=== PATIENT | female | born 1945 | race Caucasian/White ===

== ENCOUNTER 2017-03-01 16:12 | Observation (INO) | payer MEDICARE, BC ==
[2017-03-01 16:42] LABS: #Basophils 0.1 thou/uL (0.0-0.2); #Monocytes 0.4 thou/uL (0.11-0.59); #Neutrophils 4.5 thou/uL (1.40-6.50); %Basophils 1.2 % (0.0-1.0); %Eosinophils 0.6 % (0.0-10.0); %Lymphocytes 16.2 % (21.0-51.0); %Monocytes 6.1 % (0.0-10.0); %Neutrophils 75.8 % (42.0-75.0); Hemoglobin 11.8 g/dL (12.0-16.0); Mean Corpuscular HGB CONC 31.7 g/dL (32.0-36.0); Mean Corpuscular Hemoglobin 30.3 pg (27.0-31.0); Mean Corpuscular Volume 95.7 fl (81.0-99.0); Mean Platelet Volume 6.1 fL (7.4-10.4); Platelet Count 277 thou/uL (130-400); RBC Distribution Width 11.7 % (11.5-14.5); Red Blood Cell (RBC) Count 3.91 mill/uL (4.20-5.40); White Blood Cell (WBC) Count 5.9 thou/uL (4.8-10.8)
[2017-03-01] MEDS ORDERED: Nitroglycerin 2% Ointment 1 INCH/1 GM Packet ONE (16:52)
[2017-03-01] MEDS ORDERED: Nitroglycerin 0.4 MG TAB (25 Tab Bottle) ONE (16:52)
[2017-03-01 16:53] LABS: ALT (SGPT) 41 U/L (8-55); AST (SGOT) 66 U/L (5-34); Albumin 3.8 g/dL (3.4-4.8); Alkaline Phosphatase 98 U/L (40-150); Anion Gap 14 mmol/L (10-20); BUN (Urea Nitrogen) 18 mg/dL (9.8-20.1); Bilirubin, Total 0.2 mg/dL (0.2-1.2); CK (CPK) 129 U/L (29-168); Calc. Creatinine Clearance 0 mL/min (70-130); Calcium 8.9 mg/dL (7.8-10.44); Carbon Dioxide 23 mmol/L (23-31); Chloride 106 mmol/L (98-107); Estimated GFR-MDRD 70; Globulin 2.8 g/dL (2.4-3.5); Glucose 137 mg/dL (83-110); Potassium 3.6 mmol/L (3.5-5.1); Protein, Total 6.6 g/dL (6.0-8.3); Sodium 139 mmol/L (136-145)
[2017-03-01 16:57] LABS: CKMB 3.1 ng/mL (0-6.6); Troponin I 0.014 ng/mL (< 0.028)
--- NOTE | 2017-03-01 16:57 | RAD ---
CHEST ONE VIEW: History: Chest pain. Comparison: None. FINDINGS: Portable upright chest. Normal cardiac silhouette. The pulmonary vessels and hilum are normal. No mas s. No consolidation. No pneumothorax or osseous abnormality. IMPRESSION: No acute cardiopulmonary process. POS: [facility]
[2017-03-01] MEDS ORDERED: HYDROcodone/Acetaminophen 5/325 mg Tablet PO PRN ×2 (19:56)
[2017-03-01] MEDS ORDERED: Ondansetron HCl/PF 4 MG/2 ML Vial IVP PRN (19:56)
[2017-03-01] MEDS ORDERED: Ondansetron ODT 4 MG TAB SL PRN (19:56)
[2017-03-01] MEDS: Acetaminophen 325 MG TAB PO PRN (20:42)
[2017-03-01 22:15] VITALS: BMI 23.1
[2017-03-01] MEDS ORDERED: clonazePAM 1 MG TAB PO PRN (22:42)
[2017-03-01] MEDS ORDERED: CeleCOXIB 100 MG CAP PO PRN (22:42)
[2017-03-01] MEDS ORDERED: Enoxaparin Sodium 30 MG/0.3 ML SYRINGE SC SCH (22:45)
[2017-03-01] MEDS ORDERED: Metoprolol Tartrate 25 MG TAB PO SCH (23:00)
[2017-03-01] MEDS ORDERED: Losartan 25 MG TAB PO SCH (23:15)
[2017-03-01 23:39] LABS: CKMB 2.1 ng/mL (0-6.6); Troponin I 0.011 ng/mL (< 0.028)
[2017-03-02] MEDS: Nitroglycerin 2% Ointment 1 INCH/1 GM Packet TOP SCH ×2 (03:53→15:10)
[2017-03-02 04:35] VITALS: TEMP 99.8
[2017-03-02] MEDS: Acetaminophen 325 MG TAB PO PRN (04:46)
[2017-03-02 05:20] LABS: #Lymphocytes 0.8 thou/uL (1.20-3.40); #Monocytes 0.2 thou/uL (0.11-0.59); #Neutrophils 1.2 thou/uL (1.40-6.50); %Basophils 1.2 % (0.0-1.0); %Eosinophils 1.2 % (0.0-10.0); %Lymphocytes 34.8 % (21.0-51.0); %Monocytes 7.1 % (0.0-10.0); %Neutrophils 55.8 % (42.0-75.0); Hemoglobin 11.5 g/dL (12.0-16.0); Mean Corpuscular HGB CONC 32.1 g/dL (32.0-36.0); Mean Corpuscular Hemoglobin 31.8 pg (27.0-31.0); Mean Corpuscular Volume 99.2 fl (81.0-99.0); Mean Platelet Volume 7.6 fL (7.4-10.4); Platelet Count 246 thou/uL (130-400); RBC Distribution Width 11.9 % (11.5-14.5); Red Blood Cell (RBC) Count 3.61 mill/uL (4.20-5.40); White Blood Cell (WBC) Count 2.2 thou/uL (4.8-10.8)
[2017-03-02 05:30] LABS: Anion Gap 12 mmol/L (10-20); BUN (Urea Nitrogen) 14 mg/dL (9.8-20.1); Calc. Creatinine Clearance 63 mL/min (70-130); Calcium 8.4 mg/dL (7.8-10.44); Carbon Dioxide 23 mmol/L (23-31); Cardiac Risk 2.9 (Less than 4.5); Chloride 106 mmol/L (98-107); Cholesterol 162 mg/dl (< 200 Desired); Estimated GFR-MDRD 75; Glucose 79 mg/dL (83-110); HDL Cholesterol 56 mg/dL (>60 Neg Risk); LDL Cholesterol, Calculated 96 mg/dL; Magnesium 1.8 mg/dL (1.6-2.6); Potassium 3.5 mmol/L (3.5-5.1); Sodium 137 mmol/L (136-145); Triglycerides 51 mg/dL (Less than 150)
[2017-03-02] MEDS ORDERED: Levothyroxine Sodium 25 MCG TAB PO SCH (06:00)
--- NOTE | 2017-03-02 06:11 | HP ---
PRIMARY CARE PHYSICIAN: Dr. Yo Ochoa. TIME OF SERVICE: 10:10. CHIEF COMPLAINT: Chest pain. HISTORY OF PRESENT ILLNESS: Ms. Jensen is a pleasant 72-year-old white female with history of hypert ension, hypothyroidism who presents to outside Emergency Department with complaints of chest pain. Patient states she was sitting on a couch, actually and ironically studying for a recertification of CPR. 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 It did not radiate into any of her arms or legs. She had a little bit of nausea, but no shortness of b reath or diaphoresis. She had no indigestion associated with it, and had no known exacerbating or alleviating factors. She did get up and take a shower and noticed it really had not gone away, so [facility]. En route to the ER, the pain did stop but then recurred worse in the first time at 10/10. She was gi hunter nitroglycerin sublingual and helped to ease it out. She has had no pain since. No other current complaints. Denies any fever or chills, no cough, no sputum production, hemoptysis. No GI bleeding. PAST MEDICAL HISTORY: 1. Hypertension. 2. Hypothyroidism. 3. Chart with diabetes; she denies having. HOME MEDICATIONS: 1. Losartan 100 mg p.o. at bedtime. 2. Levothyroxine 25 mcg p.o. at bedtime every day. 3. Trazodone 100 mg p.o. at bedtime. She has been on that for 40 years . 4. Celebrex 200 mg 1-2 times daily p.r.n. pain. 5. Centrum Silver daily. 5. Calcium citrate 500 mg p.o. q.a.m. 6. Klonopin 1 mg tablets one-half to one whole tablet p.o. at bedtime p.r.n. insomnia. PAST SURGICAL HISTORY: 1. Gastric sleeve procedure about 12 years ago. 2. Laparoscopic cholecystectomy 7-8 years ago. 3. TAHBSO 26 years ago. 4. Left knee anterior cruciate ligament repair 40 years ago. She did have a stress test prior to her gastric sleeve that was negative. ALLERGIES: LEVOFLOXACIN causes abdominal pain. MACRODANTIN causes chills. LISINOPRIL causes cough and Tylenol #3 causes abdominal pain. FAMILY HISTORY: Significant for mom with COPD and diabetes. Dad at age 54 of acute heart attac k. SOCIAL HISTORY: Negative for habits x3. 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 REVIEW OF SYSTEMS: A 10-point review of systems was performed, negative for all systems except as st ated as per HPI. PHYSICAL EXAMINATION: VITAL SIGNS: Temperature 99.3, pulse 97, blood pressure 129/70, respiratory rate 20, satting 96% on room air. GENERAL: She is awake. She is alert. She is oriented. She is a well-developed, well-nourished, wh ite female who appears to be in no acute distress. She appears younger than her stated age of 72. HEENT: Normocephalic and atraumatic. Her pupils are equal, round, reactive to light bilaterally. M ucous membranes are moist. She has no visible lesions. No thrush. NECK: Supple with no lymphadenopathy, JVD or thyromegaly. She has normal carotid upstroke. There a re no bruits. RESPIRATORY: Lungs are clear to auscultation bilaterally. She has good air movement. Symmetrical c hest excursion. There are no wheezes, no rales, no rhonchi, and no prolonged expiratory phase. CARDIOVASCULAR: Normal S1, S2. No S3, S4. She has a faint 2/6 systolic ejection murmur in the righ t upper sternal border. There is no radiation. She has no diastolic murmurs. No holosystolic murmu r. ABDOMEN: Soft, it is nontender, nondistended. She has no masses, no organomegaly. She has no rebou nd, rigidity or guarding. There is normoactive bowel sounds present in all 4 quadrants. EXTREMITIES: Show no cyanosis or clubbing. She got trace edema at the bilateral feet and ankles. S he has an old arthrotomy scar in the anterior aspect of her left knee that is well healed. SKIN: Warm and well perfused without any rashes or lesions. MUSCULOSKELETAL: Normal to inspection. She has no inflamed joints. No palpable joint effusions. NEUROLOGIC: Cranial nerves II-XII are grossly intact. She has normal speech pattern, 5/5 strength i n all 4 of her extremities. No focal deficits. LABORATORY DATA: Sodium 139, potassium 3.6, chloride 106, bicarb 23, BUN 18, creatinine 0.8, glucose 137, and calcium 8.9. Liver functions are normal except for an AST is slightly elevated at 66. CBC showed white count of 5.9, hemoglobin 11.8, hematocrit 37.4, platelet count is 277,000. Cardiac biomarkers with a CK of 129, CK-MB of 3.1 and troponin I negative at 0.014. Her chest x-ray done earlier today showed no acute cardiopulmonary disease. ASSESSMENT AND PLAN: 1. Chest pain, we will rule out acute cardiac syndrome. We will get serial cardiac biomarkers. We will place her on oxygen, nitroglycerin paste, beta denilson, and aspirin. We will get serial cardiac biomarkers. If it is negative, we will proceed with nuclear stress test in the morning. I think it is likely being a cardiac induced that she does aerobics three times a week without any difficulty a nd likely if this was an acute cardiac event, it would be a large arterial blockage. 2. Hypertension: Continue her losartan. 3. Hypothyroidism, on levothyroxine, which she will continue.
[2017-03-02 07:41] LABS: CKMB 1.7 ng/mL (0-6.6); Troponin I 0.011 ng/mL (< 0.028)
[2017-03-02 08:11] VITALS: BP 103/53
[2017-03-02] MEDS ORDERED: Metoprolol Tartrate 25 MG TAB PO SCH (09:00)
[2017-03-02] MEDS ORDERED: Famotidine 20 MG TAB PO SCH (09:00)
[2017-03-02] MEDS ORDERED: Aspirin 325 MG TAB PO SCH (09:00)
[2017-03-02] MEDS ORDERED: Enoxaparin Sodium 30 MG/0.3 ML SYRINGE SC SCH (09:00)
--- NOTE | 2017-03-02 13:25 | NM ---
NUCLEAR MEDICINE CARDIAC MYOCARDIAL PERFUSION SPECT EJECTION FRACTION STUDY WALL MOTION CINE: HISTORY: 72-year-old female with chest pain. TECHNIQUE: Number of days: 1 Rest study: Tc99m sestamibi (Cardiolite) dose: 10.2 mCi Exercise stress: treadmill. Stress study: Tc99m sestamibi (Cardiolite) dose: 29.0 mCi FINDINGS: CARDIAC (MYOCARDIAL PERFUSION) SPECT Distribution of sestamibi is homogeneous throughout the left ventricle, with no fixed or reversible m yocardial perfusion defects. EJECTION FRACTION STUDY EF = 80% WALL MOTION CINE The left ventricular wall motion is normal. There is normal systolic wall thickening. IMPRESSION: Normal. [email or web address][] POS: [facility]
[2017-03-02] MEDS ORDERED: Losartan 25 MG TAB PO SCH (21:00)
--- NOTE | 2017-03-03 11:51 | DIS ---
DATE OF DISCHARGE: 03/02/2017 PRIMARY CARE PHYSICIAN: Yo Ochoa M.D. DISCHARGE DIAGNOSES: 1. Chest pain, non-acute coronary syndrome, resolved. 2. Hypertension. 3. Hypothyroidism. BRIEF SUMMARY OF HOSPITAL COURSE: A 72-year-old female with a known history of hypertension, type 2 diabetes, who is initially admitted for chest pain at home. Please see the original history and formerly [facility] ical for full details. The patient was admitted, serial troponins were obtained, most recent value o f 0.011, essentially negative per our assay. The patient underwent a stress test, which was negative as well. At the time of discharge, the patient has been instructed to follow up with her primary ca re team and return if there is any recurrent of her chest pain issues. Remainder of her chronic medical issues were stable during hospitalization. CONSULTATIONS: None. MEDICATION RECONCILIATION: The patient has been instructed to continue her home regimen without harrell ge. DISCHARGE INSTRUCTIONS: The patient is asked to follow up closely with her outpatient team including her primary care provider in the next week. DISCHARGE PLAN: The patient is discharged to home. The patient is able to complete teach-back and n o prescriptions were given. Thank you for asking me care for your patient. Questions or concerns, please contact me at [facility].
== END 2017-03-02 15:46 | disposition home or self-care (01) ==
LOC: SCSER 16:12 → 2SW 17:29
PROVIDERS: ADMIT Internal Medicine; ATTEND Internal Medicine
DX: R07.89 Other chest pain (principal); I10 Essential (primary) hypertension; E03.9 Hypothyroidism, unspecified; E11.9 Type 2 diabetes mellitus without complications; Z79.899 Other long term (current) drug therapy; Z98.84 Bariatric surgery status; Z90.49 Acquired absence of other specified parts of digestive tract; Z90.710 Acquired absence of both cervix and uterus; Z90.722 Acquired absence of ovaries, bilateral; Z98.890 Other specified postprocedural states; Z83.6 Family history of other diseases of the respiratory system; Z83.3 Family history of diabetes mellitus; Z82.49 Family history of ischemic heart disease and other diseases of the circulatory system
CPT/HCPCS: 71045; 78452; 80048; 80053; 80061; 82550; 82553 ×3; 83735; 84484 ×3; 85025 ×2; 93005; 93017; 94760; 96372; 99285; A9500; G0378; 36415; J1650

== ENCOUNTER 2017-07-26 08:51 | Outpatient (CLI) | payer MEDICARE, BC ==
--- NOTE | 2017-07-27 09:46 | MMO ---
BILATERAL SCREENING MAMMOGRAM: INDICATION: Annual exam. COMPARISON: Prior exam dated 07/09/15. FINDINGS: The interpretation of this examination was assisted with computer-aided detection. Breast parenchyma demonstrates scattered fibroglandular elements. There secretory and vascular calcifications bilaterally. No new suspicious mass, cluster of microcalcifications, or area of architectural distortion is eviden t. IMPRESSION: BI-RADS category 2 - benign. Recommend routine annual mammographic screening. BIRADS 2: Benign Finding(s) Routine annual screening mammography (for women over age 40) POS: [facility]
== END 2017-07-26 08:52 | disposition home or self-care (01) ==
LOC: SCSMAMMO 08:51
PROVIDERS: ATTEND Obstetrics & Gynecology
DX: Z12.31 Encounter for screening mammogram for malignant neoplasm of breast (principal)
CPT/HCPCS: 77067

== ENCOUNTER 2020-10-02 07:29 | Outpatient (CLI) | payer MEDICARE, BC ==
[2020-10-02] MEDS ORDERED: Magnevist 469MG/ML 20 ML VIAL ONE (10:09)
== END 2020-10-02 07:30 | disposition home or self-care (01) ==
LOC: BICMRI 07:29
PROVIDERS: ATTEND Physician Assistant Medical
DX: K85.90 Acute pancreatitis without necrosis or infection, unspecified (principal); R74.01 Elevation of levels of liver transaminase levels; K86.89 Other specified diseases of pancreas; K83.8 Other specified diseases of biliary tract; Z90.49 Acquired absence of other specified parts of digestive tract
CPT/HCPCS: 74183; 82565; A9579

== ENCOUNTER 2021-08-08 08:31 | Outpatient (CLI) | payer MEDICARE, BC | END 2021-08-08 08:32 | disposition home or self-care (01) | LOC: TBSIIMAG 08:31 | PROVIDERS: ATTEND Specialist | DX: M51.16 Intervertebral disc disorders with radiculopathy, lumbar region (principal); M48.061 Spinal stenosis, lumbar region without neurogenic claudication; M47.26 Other spondylosis with radiculopathy, lumbar region | CPT/HCPCS: 72148 ==

== ENCOUNTER 2021-09-03 12:13 | Outpatient (CLI) | payer MEDICARE, BC ==
[2021-09-03 13:40] LABS: Hemoglobin 12.2 g/dL (12.0-15.5); Mean Corpuscular HGB CONC 32.5 g/dL (32.0-36.0); Mean Corpuscular Hemoglobin 31.5 pg (27.0-33.0); Mean Corpuscular Volume 96.9 fl (81.6-98.3); Mean Platelet Volume 10.2 fl (7.4-10.4); Platelet Count 368 10x3/uL (150-450); RBC Distribution Width 14.3 % (11.5-14.5); Red Blood Cell (RBC) Count 3.87 10x6/uL (3.90-5.03); White Blood Cell (WBC) Count 6.3 10x3/uL (3.5-10.5)
[2021-09-03 14:07] LABS: Anion Gap 17 mmol/L (10-20); BUN (Urea Nitrogen) 22 mg/dL (9.8-20.1); Calc. Creatinine Clearance 0 mL/min (70-130); Calcium 9.8 mg/dL (7.8-10.44); Carbon Dioxide 22 mmol/L (23-31); Chloride 106 mmol/L (98-107); Estimated GFR 63; Glucose 95 mg/dL (83-110); Potassium 4.5 mmol/L (3.5-5.1); Sodium 140 mmol/L (136-145)
== END 2021-09-03 12:14 | disposition home or self-care (01) ==
LOC: LABBT 12:13
PROVIDERS: ATTEND Neurological Surgery
DX: Z01.818 Encounter for other preprocedural examination (principal); M54.16 Radiculopathy, lumbar region; Z20.822 Contact with and (suspected) exposure to COVID-19
CPT/HCPCS: 80048; 85027; 87811; 93005; 93010

== ENCOUNTER 2021-09-08 06:50 | Day surgery (SDC) | payer MEDICARE, BC ==
[2021-09-05 08:56] VITALS: BMI 24.1
[2021-09-08] MEDS ORDERED: Sodium Chloride 0.9% 100 ML ONE (07:58)
[2021-09-08] MEDS ORDERED: cefOXitin 2 GM VIAL ONE (07:58)
[2021-09-08] MEDS ORDERED: Phenylephrine 10 MG/ML VIAL ONE (09:03)
[2021-09-08] MEDS ORDERED: Rocuronium Bromide 10 MG/ML (10ML VIAL) ONE (09:03)
[2021-09-08] MEDS ORDERED: Dexamethasone 20 MG/5 ML VIAL ONE (09:03)
[2021-09-08] MEDS ORDERED: PROPOFOL 200 MG/20 ML VIAL ONE (09:03)
[2021-09-08] MEDS ORDERED: ePHEDrine 50 MG/ML VIAL ONE (09:03)
[2021-09-08] MEDS ORDERED: Ondansetron PF 4 MG/2 ML Vial ONE (09:03)
[2021-09-08] MEDS ORDERED: Lidocaine 1% PF 5 ML VIAL ONE (09:03)
[2021-09-08] MEDS ORDERED: fentaNYL Citrate/PF 100 MCG/2 ML SYRINGE ONE (09:47)
[2021-09-08] MEDS ORDERED: SUGAMMADEX SODIUM 200 MG/2 ML VIAL ONE (10:26)
[2021-09-08] MEDS ORDERED: Fentanyl 100 MCG/2 ML VIAL ONE ×3 (10:54→11:31)
[2021-09-08] MEDS ORDERED: HYDROmorphone 0.5 MG/0.5 ML SYRINGE ONE ×3 (10:56→11:31)
[2021-09-08] MEDS ORDERED: HYDROcodone/Acetaminophen 5/325 mg Tablet ONE (13:07)
== END 2021-09-08 15:35 | disposition home or self-care (01) ==
LOC: SDC 06:50
PROVIDERS: ATTEND Neurological Surgery
PROC: 0SG0071 Fusion of Lumbar Vertebral Joint with Autologous Tissue Substitute, Posterior Approach, Posterior Column, Open Approach (ICD-10-PCS; principal; 2021-09-08)
DX: M47.26 Other spondylosis with radiculopathy, lumbar region (principal); M48.062 Spinal stenosis, lumbar region with neurogenic claudication; I10 Essential (primary) hypertension; M19.90 Unspecified osteoarthritis, unspecified site; Z98.84 Bariatric surgery status; Z79.890 Hormone replacement therapy; Z79.899 Other long term (current) drug therapy
CPT/HCPCS: 20930; 20936; 22612; 22840; 76000; C1713 ×2; C1768; J0694; J1100; J1170; J2370; J2405; J2704; J3010; J3370; J3490

== ENCOUNTER 2021-09-25 08:39 | Outpatient (CLI) | payer MEDICARE, BC | END 2021-09-25 08:40 | disposition home or self-care (01) | LOC: TBSIIMAG 08:39 | PROVIDERS: ATTEND Neurological Surgery | DX: M47.26 Other spondylosis with radiculopathy, lumbar region (principal); Z98.890 Other specified postprocedural states | CPT/HCPCS: 72100 ==

== ENCOUNTER 2021-11-13 12:42 | Outpatient (CLI) | payer MEDICARE, BC ==
[~2021-11-13 12:42] MED LIST: Magnevist 469MG/ML 20 ML VIAL ONE
== END 2021-11-13 12:43 | disposition home or self-care (01) ==
LOC: MRI 12:42
PROVIDERS: ATTEND Neurological Surgery
DX: M54.50 Low back pain, unspecified (principal); M47.816 Spondylosis without myelopathy or radiculopathy, lumbar region; M47.817 Spondylosis without myelopathy or radiculopathy, lumbosacral region; M47.815 Spondylosis without myelopathy or radiculopathy, thoracolumbar region; R60.0 Localized edema; Z98.890 Other specified postprocedural states
CPT/HCPCS: 72100; 72158; A9579

== ENCOUNTER 2021-11-15 10:35 | Inpatient (IN) | payer MEDICARE, BC ==
[2021-11-15] MEDS ORDERED: Morphine 4 MG/ML VIAL ONE (11:56)
[2021-11-15] MEDS ORDERED: Ketorolac Tromethamine 30 MG/ML VIAL ONE (11:57)
[2021-11-15 12:17] LABS: #Eosinphils 0.1 thou/uL (0.0-0.7); #Lymphocytes 0.8 thou/uL (1.20-3.40); #Monocytes 0.5 thou/uL (0.11-0.59); #Neutrophils 6.8 thou/uL (1.40-6.50); %Basophils 0.1 % (0.0-1.0); %Eosinophils 0.9 % (0.0-10.0); %Lymphocytes 9.3 % (21.0-51.0); %Monocytes 6.1 % (0.0-10.0); %Neutrophils 83.6 % (42.0-75.0); Hemoglobin 7.7 g/dL (12.0-16.0); Mean Corpuscular Volume 93.9 fL (78.0-98.0); Mean Platelet Volume 6.7 fL (7.4-10.4); Platelet Count 458 thou/uL (130-400); RBC Distribution Width 12.6 % (11.5-14.5); Red Blood Cell (RBC) Count 2.48 mill/uL (4.20-5.40); White Blood Cell (WBC) Count 8.1 thou/uL (4.8-10.8)
[2021-11-15 12:24] LABS: ALT (SGPT) 15 U/L (8-55); AST (SGOT) 24 U/L (5-34); Albumin 2.7 g/dL (3.4-4.8); Alkaline Phosphatase 83 U/L (40-110); Anion Gap 13 mmol/L (10-20); BUN (Urea Nitrogen) 26 mg/dL (9.8-20.1); Bilirubin, Total 0.4 mg/dL (0.2-1.2); Calc. Creatinine Clearance 0 mL/min (70-130); Calcium 8.5 mg/dL (7.8-10.44); Carbon Dioxide 18 mmol/L (23-31); Chloride 108 mmol/L (98-107); Estimated GFR 72; Globulin 3.3 g/dL (2.4-3.5); Glucose 107 mg/dL (83-110); Potassium 4.3 mmol/L (3.5-5.1); Sodium 135 mmol/L (136-145)
[2021-11-15] MEDS ORDERED: Ondansetron PF 4 MG/2 ML Vial IVP PRN (14:58)
[2021-11-15] MEDS ORDERED: Sodium Chloride 0.9% 500 ML IV SCH (15:15)
[2021-11-15 17:10] VITALS: BMI 21.5
[2021-11-15] MEDS ORDERED: Piperacillin/Tazobactam 3.375 GM in Sodium Chloride 0.9% 100 ML IVPB SCH ×2 (17:30→22:00)
[2021-11-15] MEDS: Acetaminophen 325 MG TAB PO PRN ×2 (17:47→21:20)
[2021-11-15] MEDS: Sodium Chloride 0.9% 1,000 ML IV SCH (17:54)
[2021-11-15] MEDS: Piperacillin/Tazobactam 3.375 GM in Sodium Chloride 0.9% 100 ML IVPB SCH (18:54)
[2021-11-15] MEDS: Lidocaine 5% Patch TD SCH (21:20)
[2021-11-15] MEDS: Polyethylene Glycol 3350 17 GM Packet PO PRN (21:20)
[2021-11-15] MEDS: Gabapentin 300 MG CAP PO SCH (21:21)
[2021-11-15] MEDS: Senokot S 8.6-50 MG TAB PO SCH (21:21)
[2021-11-15] MEDS ORDERED: Bisacodyl 10 MG SUPP PR PRN (23:00)
[2021-11-15] MEDS ORDERED: Non-Formulary Item 1 EACH (Telmisartan [Telmisartan] 40 MG Tablet) PO SCH (23:00)
[2021-11-15] MEDS ORDERED: clonazePAM 1 MG TAB PO PRN (23:02)
[2021-11-15] MEDS: Vancomycin HCl 750 MG in Sodium Chloride 0.9% 250 ML 250 ML IVPB SCH (23:52)
[2021-11-15] MEDS: Morphine 4 MG/ML VIAL SLOW IVP PRN (23:52)
[2021-11-16 00:55] LABS: Bilirubin Negative (Negative); Blood, Urine Negative (Negative); Clarity Clear (Clear); Glucose, Urine (Dipstick) Normal (Negative); Ketone, Urine Negative (Negative); Leukocyte Negative Leu/uL (Negative); Nitrite Negative (Negative); Protein, Urine (Dipstick) Negative (Neg-Trace); RBC/HPF 0-3 HPF (0-3); Specific Gravity, Urine 1.014 (1.002-1.036); Squamous Epithelial None Seen HPF (0-3); Urobilinogen Normal mg/dL (Less than 2); WBC/HPF 0-3 HPF (0-3)
[2021-11-16 01:02] LABS: Bacteria/HPF Rare-Few HPF (None Seen)
[2021-11-16 01:04] LABS: Urine Culture Reflex No No
[2021-11-16 01:13] LABS: SARS-CoV-2 NAA Rapid Test Not Detected (NotDetected)
[2021-11-16] MEDS: Sodium Chloride 0.9% 1,000 ML IV SCH (01:18)
[2021-11-16] MEDS: Piperacillin/Tazobactam 3.375 GM in Sodium Chloride 0.9% 100 ML IVPB SCH ×3 (02:00→18:36)
[2021-11-16] MEDS: Levothyroxine Sodium 25 MCG TAB PO SCH (06:40)
[2021-11-16] MEDS: Senokot S 8.6-50 MG TAB PO SCH ×2 (08:43→20:09)
[2021-11-16] MEDS: Gabapentin 300 MG CAP PO SCH ×3 (08:43→20:10)
[2021-11-16] MEDS: Acetaminophen 325 MG TAB PO PRN ×3 (08:44→22:10)
[2021-11-16] MEDS ORDERED: Transdermal Patch Removal TOP SCH (09:00)
[2021-11-16] MEDS ORDERED: FLU VACC QS2022-23(65YR UP)/PF 240 MCG/0.7 ML SYRINGE IM ONE (09:00)
[2021-11-16 10:09] LABS: #Eosinphils 0.2 thou/uL (0.0-0.7); #Lymphocytes 0.5 thou/uL (1.20-3.40); #Monocytes 0.4 thou/uL (0.11-0.59); #Neutrophils 6.3 thou/uL (1.40-6.50); %Lymphocytes 6.9 % (21.0-51.0); %Monocytes 5.3 % (0.0-10.0); %Neutrophils 84.8 % (42.0-75.0); Hemoglobin 8.2 g/dL (12.0-16.0); Mean Corpuscular Hemoglobin 30.3 pg (27.0-31.0); Mean Corpuscular Volume 94.7 fL (78.0-98.0); Platelet Count 470 thou/uL (130-400); RBC Distribution Width 12.6 % (11.5-14.5); Red Blood Cell (RBC) Count 2.72 mill/uL (4.20-5.40); White Blood Cell (WBC) Count 7.5 thou/uL (4.8-10.8)
[2021-11-16 10:33] LABS: Anion Gap 13 mmol/L (10-20); BUN (Urea Nitrogen) 23 mg/dL (9.8-20.1); CRP (Inflammatory) 13.76 mg/dL (= or < 0.5); Calc. Creatinine Clearance 42 mL/min (70-130); Calcium 8.8 mg/dL (7.8-10.44); Carbon Dioxide 16 mmol/L (23-31); Chloride 110 mmol/L (98-107); Estimated GFR 63; Glucose 199 mg/dL (83-110); Potassium 4.4 mmol/L (3.5-5.1); Sodium 135 mmol/L (136-145)
[2021-11-16] MEDS: Morphine 4 MG/ML VIAL SLOW IVP PRN (10:56)
[2021-11-16] MEDS ORDERED: tiZANidine HCl 4 MG TAB PO PRN (11:45)
[2021-11-16] MEDS ORDERED: diphenhydrAMINE 50 MG/ML VIAL IM PRN (12:23)
[2021-11-16] MEDS ORDERED: FENTANYL 500 MCG/10 ML VIAL 2,000 MCG in Sodium Chloride 0.9% 60 ML IV PRN (12:23)
[2021-11-16] MEDS ORDERED: Ondansetron PF 4 MG/2 ML Vial IVP PRN (12:23)
[2021-11-16] MEDS ORDERED: diphenhydrAMINE 25 MG CAP PO PRN (12:23)
[2021-11-16] MEDS ORDERED: Naloxone HCl 0.4 mg/ml Vial IV PRN (12:23)
[2021-11-16] MEDS ORDERED: diphenhydrAMINE 50 MG/ML VIAL IVP PRN (12:23)
[2021-11-16] MEDS ORDERED: Promethazine HCl 25 MG/ML VIAL IM PRN (12:23)
[2021-11-16] MEDS ORDERED: Zolpidem Tartrate 5 MG TAB PO PRN (12:23)
[2021-11-16] MEDS ORDERED: Communication Order-Pharmacy FS SCH (12:30)
[2021-11-16 13:22] LABS: Free T4 (Free Thyroxine) 1.02 ng/dL (0.70-1.48)
[2021-11-16] MEDS ORDERED: Calcium Carbonate 500 MG ChewTAB PO PRN (18:42)
[2021-11-16] MEDS: Lidocaine 5% Patch TD SCH (20:10)
[2021-11-16] MEDS: Polyethylene Glycol 3350 17 GM Packet PO PRN (20:10)
[2021-11-16 23:24] LABS: Vancomycin, Trough 8.9 ug/mL
[2021-11-17] MEDS: Vancomycin HCl 750 MG in Sodium Chloride 0.9% 250 ML 250 ML IVPB SCH ×3 (00:20→13:35)
[2021-11-17] MEDS: Piperacillin/Tazobactam 3.375 GM in Sodium Chloride 0.9% 100 ML IVPB SCH ×3 (02:10→18:14)
[2021-11-17] MEDS: Levothyroxine Sodium 25 MCG TAB PO SCH (06:30)
[2021-11-17] MEDS: Gabapentin 300 MG CAP PO SCH ×5 (08:14→20:28)
[2021-11-17] MEDS: Senokot S 8.6-50 MG TAB PO SCH ×2 (08:14→20:28)
[2021-11-17 09:08] LABS: #Eosinphils 0.3 thou/uL (0.0-0.7); #Lymphocytes 1.1 thou/uL (1.20-3.40); #Monocytes 0.8 thou/uL (0.11-0.59); #Neutrophils 5.4 thou/uL (1.40-6.50); %Basophils 0.2 % (0.0-1.0); %Eosinophils 3.4 % (0.0-10.0); %Lymphocytes 13.9 % (21.0-51.0); %Neutrophils 71.5 % (42.0-75.0); Mean Corpuscular Hemoglobin 31.3 pg (27.0-31.0); Mean Corpuscular Volume 97.9 fL (78.0-98.0); Mean Platelet Volume 6.7 fL (7.4-10.4); Platelet Count 432 thou/uL (130-400); RBC Distribution Width 12.7 % (11.5-14.5); Red Blood Cell (RBC) Count 2.23 mill/uL (4.20-5.40); White Blood Cell (WBC) Count 7.6 thou/uL (4.8-10.8)
[2021-11-17] MEDS: Lidocaine 5% Patch TD SCH (10:00)
[2021-11-17] MEDS: Acetaminophen 325 MG TAB PO PRN ×3 (10:00→20:36)
[2021-11-17] MEDS: tiZANidine HCl 4 MG TAB PO SCH ×3 (10:00→20:28)
[2021-11-17] MEDS ORDERED: FENTANYL 500 MCG/10 ML VIAL 2,000 MCG in Sodium Chloride 0.9% 60 ML IV PRN (10:12)
[2021-11-17 12:35] LABS: Calcium 8.2 mg/dL (7.8-10.44); Chloride 109 mmol/L (98-107); Potassium 3.9 mmol/L (3.5-5.1); Sodium 134 mmol/L (136-145)
[2021-11-17 12:36] LABS: Glucose 142 mg/dL (83-110)
[2021-11-17 12:37] LABS: Anion Gap 13 mmol/L (10-20); Carbon Dioxide 16 mmol/L (23-31)
[2021-11-17 12:39] LABS: CRP (Inflammatory) 8.32 mg/dL (= or < 0.5); Calc. Creatinine Clearance 50 mL/min (70-130); Estimated GFR 77
[2021-11-17 12:40] LABS: BUN (Urea Nitrogen) 19 mg/dL (9.8-20.1)
[2021-11-17] MEDS: Transdermal Patch Removal TOP SCH (20:29)
[2021-11-18] MEDS: Vancomycin HCl 750 MG in Sodium Chloride 0.9% 250 ML 250 ML IVPB SCH ×2 (00:02→15:59)
[2021-11-18] MEDS: Acetaminophen 325 MG TAB PO PRN ×3 (01:47→15:59)
[2021-11-18] MEDS: Piperacillin/Tazobactam 3.375 GM in Sodium Chloride 0.9% 100 ML IVPB SCH ×3 (01:48→21:11)
[2021-11-18 05:56] LABS: #Eosinphils 0.3 thou/uL (0.0-0.7); #Monocytes 0.6 thou/uL (0.11-0.59); #Neutrophils 4.7 thou/uL (1.40-6.50); %Basophils 0.4 % (0.0-1.0); %Eosinophils 4.3 % (0.0-10.0); %Lymphocytes 15.7 % (21.0-51.0); %Monocytes 9.2 % (0.0-10.0); %Neutrophils 70.5 % (42.0-75.0); Hemoglobin 7.4 g/dL (12.0-16.0); Mean Corpuscular HGB CONC 31.8 g/dL (32.0-36.0); Mean Corpuscular Hemoglobin 30.5 pg (27.0-31.0); Mean Platelet Volume 6.9 fL (7.4-10.4); Platelet Count 446 thou/uL (130-400); RBC Distribution Width 12.8 % (11.5-14.5); Red Blood Cell (RBC) Count 2.43 mill/uL (4.20-5.40); White Blood Cell (WBC) Count 6.7 thou/uL (4.8-10.8)
[2021-11-18 06:18] LABS: Anion Gap 14 mmol/L (10-20); BUN (Urea Nitrogen) 14 mg/dL (9.8-20.1); Calc. Creatinine Clearance 48 mL/min (70-130); Calcium 8.8 mg/dL (7.8-10.44); Carbon Dioxide 15 mmol/L (23-31); Chloride 110 mmol/L (98-107); Estimated GFR 73; Glucose 152 mg/dL (83-110); Iron 17 ug/dL (50-170); Iron Binding Capacity, Total 178 mcg/dL (265-497); Potassium 3.4 mmol/L (3.5-5.1); Sodium 136 mmol/L (136-145)
[2021-11-18] MEDS: Levothyroxine Sodium 25 MCG TAB PO SCH (06:28)
[2021-11-18 06:37] LABS: Ferritin 232.28 ng/mL (10-291)
[2021-11-18] MEDS: Lidocaine 5% Patch TD SCH (10:19)
[2021-11-18] MEDS: tiZANidine HCl 4 MG TAB PO SCH ×3 (10:20→21:13)
[2021-11-18] MEDS: Senokot S 8.6-50 MG TAB PO SCH ×2 (10:20→21:12)
[2021-11-18] MEDS: Gabapentin 300 MG CAP PO SCH ×4 (10:20→21:14)
[2021-11-18] MEDS ORDERED: Magnevist 469MG/ML 20 ML VIAL ONE (12:20)
[2021-11-18 12:27] LABS: Vancomycin, Trough 18.2 ug/mL
[2021-11-18] MEDS ORDERED: Lactated Ringer's 500 ML IV SCH ×2 (13:00→16:30)
[2021-11-18] MEDS ORDERED: Potassium Chloride 20 MEQ TAB PO SCH (13:00)
[2021-11-18] MEDS ORDERED: Potassium Chloride 20 MEQ in Lactated Ringer's 1,000 ML IV SCH ×3 (13:00→17:52)
[2021-11-18] MEDS ORDERED: Iron, Sodium Ferric Gluconate 125 MG in Sodium Chloride 0.9% 100 ML IVPB SCH (13:00)
[2021-11-18] MEDS: Polyethylene Glycol 3350 17 GM Packet PO PRN (14:25)
[2021-11-18] MEDS ORDERED: Albumin 25% 25 GM/100 ML BOT IVPB SCH (16:30)
[2021-11-18 17:33] LABS: #Eosinphils 0.3 thou/uL (0.0-0.7); #Lymphocytes 1.3 thou/uL (1.20-3.40); #Monocytes 0.8 thou/uL (0.11-0.59); #Neutrophils 5.1 thou/uL (1.40-6.50); %Basophils 0.4 % (0.0-1.0); %Eosinophils 3.4 % (0.0-10.0); %Lymphocytes 17.6 % (21.0-51.0); %Monocytes 11.1 % (0.0-10.0); %Neutrophils 67.5 % (42.0-75.0); Hemoglobin 6.5 g/dL (12.0-16.0); Mean Corpuscular HGB CONC 32.1 g/dL (32.0-36.0); Mean Corpuscular Hemoglobin 30.7 pg (27.0-31.0); Mean Corpuscular Volume 95.6 fL (78.0-98.0); Mean Platelet Volume 6.7 fL (7.4-10.4); Platelet Count 381 thou/uL (130-400); RBC Distribution Width 12.6 % (11.5-14.5); Red Blood Cell (RBC) Count 2.12 mill/uL (4.20-5.40); White Blood Cell (WBC) Count 7.5 thou/uL (4.8-10.8)
[2021-11-18 18:00] LABS: Anion Gap 12 mmol/L (10-20); BUN (Urea Nitrogen) 16 mg/dL (9.8-20.1); Calc. Creatinine Clearance 48 mL/min (70-130); Calcium 8.6 mg/dL (7.8-10.44); Carbon Dioxide 17 mmol/L (23-31); Chloride 109 mmol/L (98-107); Estimated GFR 73; Glucose 106 mg/dL (83-110); Potassium 4.2 mmol/L (3.5-5.1); Sodium 134 mmol/L (136-145)
[2021-11-18 18:04] LABS: Troponin I Less than 0.010 ng/mL (< 0.028)
[2021-11-18] MEDS: HYDROcodone/Acetaminophen 5/325 mg Tablet PO PRN (21:13)
[2021-11-18] MEDS: Transdermal Patch Removal TOP SCH (21:15)
[2021-11-18] MEDS: Fentanyl 100 MCG/2 ML VIAL SLOW IVP PRN (21:47)
[2021-11-18 22:33] LABS: Troponin I Less than 0.010 ng/mL (< 0.028)
[2021-11-19] MEDS: Piperacillin/Tazobactam 3.375 GM in Sodium Chloride 0.9% 100 ML IVPB SCH ×3 (01:18→18:22)
[2021-11-19] MEDS: Fentanyl 100 MCG/2 ML VIAL SLOW IVP PRN ×4 (01:18→09:13)
[2021-11-19] MEDS: Vancomycin HCl 750 MG in Sodium Chloride 0.9% 250 ML 250 ML IVPB SCH ×2 (02:03→12:29)
[2021-11-19 02:27] LABS: Troponin I 0.018 ng/mL (< 0.028)
[2021-11-19] MEDS: Acetaminophen 325 MG TAB PO PRN ×2 (03:49→18:49)
[2021-11-19 05:20] LABS: #Eosinphils 0.2 thou/uL (0.0-0.7); #Lymphocytes 1.4 thou/uL (1.20-3.40); #Monocytes 0.8 thou/uL (0.11-0.59); #Neutrophils 5.4 thou/uL (1.40-6.50); %Basophils 0.2 % (0.0-1.0); %Eosinophils 3.1 % (0.0-10.0); %Lymphocytes 17.5 % (21.0-51.0); %Monocytes 10.3 % (0.0-10.0); %Neutrophils 68.9 % (42.0-75.0); Hemoglobin 8.3 g/dL (12.0-16.0); Mean Corpuscular HGB CONC 34.1 g/dL (32.0-36.0); Mean Corpuscular Volume 93.6 fL (78.0-98.0); Mean Platelet Volume 7.1 fL (7.4-10.4); Platelet Count 402 thou/uL (130-400); RBC Distribution Width 12.6 % (11.5-14.5); White Blood Cell (WBC) Count 7.8 thou/uL (4.8-10.8)
[2021-11-19 05:39] LABS: Anion Gap 16 mmol/L (10-20); BUN (Urea Nitrogen) 15 mg/dL (9.8-20.1); CRP (Inflammatory) 8.76 mg/dL (= or < 0.5); Calc. Creatinine Clearance 44 mL/min (70-130); Calcium 9.1 mg/dL (7.8-10.44); Carbon Dioxide 14 mmol/L (23-31); Chloride 111 mmol/L (98-107); Estimated GFR 66; Glucose 85 mg/dL (83-110); Magnesium 1.5 mg/dL (1.6-2.6); Potassium 4.2 mmol/L (3.5-5.1); Sodium 137 mmol/L (136-145)
[2021-11-19] MEDS: Levothyroxine Sodium 25 MCG TAB PO SCH (05:53)
[2021-11-19] MEDS ORDERED: Magnesium 2 GM/50 ML(in water) 2 GM in Premix Bag 1 BAG IVPB SCH (08:00)
[2021-11-19] MEDS ORDERED: Iron, Sodium Ferric Gluconate 125 MG in Sodium Chloride 0.9% 100 ML IVPB SCH (09:00)
[2021-11-19] MEDS: Gabapentin 300 MG CAP PO SCH ×4 (09:15→19:55)
[2021-11-19] MEDS: tiZANidine HCl 4 MG TAB PO SCH ×4 (09:15→22:03)
[2021-11-19] MEDS: Senokot S 8.6-50 MG TAB PO SCH ×2 (09:15→19:44)
[2021-11-19] MEDS: Morphine 4 MG/ML VIAL SLOW IVP PRN ×2 (12:29→18:21)
[2021-11-19] MEDS: Transdermal Patch Removal TOP SCH (19:54)
[2021-11-19] MEDS ORDERED: Sodium Chloride 0.9% 1,000 ML IV SCH (23:59)
[2021-11-20] MEDS: Sodium Chloride 0.9% 1,000 ML IV SCH ×2 (00:08→13:14)
[2021-11-20] MEDS: Vancomycin HCl 750 MG in Sodium Chloride 0.9% 250 ML 250 ML IVPB SCH ×3 (00:08→13:08)
[2021-11-20 00:15] LABS: Hemoglobin 7.7 g/dL (12.0-16.0)
[2021-11-20] MEDS: HYDROcodone/Acetaminophen 5/325 mg Tablet PO PRN ×3 (00:20→22:17)
[2021-11-20 00:33] LABS: Vancomycin, Trough 19.5 ug/mL
[2021-11-20] MEDS: Piperacillin/Tazobactam 3.375 GM in Sodium Chloride 0.9% 100 ML IVPB SCH ×3 (03:00→18:28)
[2021-11-20] MEDS: Morphine 4 MG/ML VIAL SLOW IVP PRN ×2 (04:33→12:54)
[2021-11-20] MEDS: Levothyroxine Sodium 25 MCG TAB PO SCH (06:07)
[2021-11-20 06:17] LABS: #Eosinphils 0.1 thou/uL (0.0-0.7); #Lymphocytes 1.1 thou/uL (1.20-3.40); #Monocytes 0.6 thou/uL (0.11-0.59); #Neutrophils 5.8 thou/uL (1.40-6.50); %Basophils 0.3 % (0.0-1.0); %Eosinophils 1.8 % (0.0-10.0); %Monocytes 7.3 % (0.0-10.0); %Neutrophils 76.6 % (42.0-75.0); Hemoglobin 8.6 g/dL (12.0-16.0); Mean Corpuscular HGB CONC 32.7 g/dL (32.0-36.0); Mean Corpuscular Hemoglobin 29.3 pg (27.0-31.0); Mean Corpuscular Volume 89.6 fL (78.0-98.0); Mean Platelet Volume 6.9 fL (7.4-10.4); Platelet Count 369 thou/uL (130-400); RBC Distribution Width 15.7 % (11.5-14.5); Red Blood Cell (RBC) Count 2.94 mill/uL (4.20-5.40); White Blood Cell (WBC) Count 7.5 thou/uL (4.8-10.8)
[2021-11-20 06:28] LABS: Anion Gap 12 mmol/L (10-20); BUN (Urea Nitrogen) 11 mg/dL (9.8-20.1); Calc. Creatinine Clearance 57 mL/min (70-130); Calcium 9.1 mg/dL (7.8-10.44); Carbon Dioxide 18 mmol/L (23-31); Chloride 110 mmol/L (98-107); Estimated GFR 89; Glucose 102 mg/dL (83-110); Potassium 3.8 mmol/L (3.5-5.1); Sodium 136 mmol/L (136-145)
[2021-11-20] MEDS ORDERED: Midazolam HCl 2 mg/2 ml Vial ONE ×2 (07:14→08:41)
[2021-11-20] MEDS ORDERED: HYDROmorphone 0.5 MG/0.5 ML SYRINGE ONE ×2 (07:45→10:45)
[2021-11-20] MEDS ORDERED: Magnesium Sulfate 3 GM in Sodium Chloride 0.9% 100 ML IVPB SCH (07:45)
[2021-11-20] MEDS ORDERED: fentaNYL Citrate/PF 100 MCG/2 ML SYRINGE ONE (07:45)
[2021-11-20] MEDS ORDERED: Phenylephrine 10 MG/ML VIAL ONE (07:46)
[2021-11-20] MEDS ORDERED: Glycopyrrolate 0.2 MG/ML 5 ML SYRINGE ONE (08:22)
[2021-11-20] MEDS ORDERED: NEOSTIGMINE 3 MG/3 ML SYR 3 MG/3 ML SYRINGE ONE (08:22)
[2021-11-20] MEDS ORDERED: Dexamethasone 20 MG/5 ML VIAL ONE (08:22)
[2021-11-20] MEDS ORDERED: PHENYLEPHRINE-NS 100 MCG/ML 10 ML SYRINGE ONE (08:22)
[2021-11-20] MEDS ORDERED: PROPOFOL 200 MG/20 ML VIAL ONE (08:22)
[2021-11-20] MEDS ORDERED: Rocuronium Bromide 10 MG/ML (10ML VIAL) ONE (08:22)
[2021-11-20] MEDS ORDERED: Ondansetron PF 4 MG/2 ML Vial ONE (08:22)
[2021-11-20] MEDS ORDERED: Neomycin-Polymyxin 1 ML AMP ONE (08:40)
[2021-11-20] MEDS: Senokot S 8.6-50 MG TAB PO SCH ×2 (08:41→20:10)
[2021-11-20] MEDS: tiZANidine HCl 4 MG TAB PO SCH ×3 (08:41→20:07)
[2021-11-20] MEDS: Gabapentin 300 MG CAP PO SCH ×4 (08:41→20:10)
[2021-11-20 09:27] LABS: Magnesium 1.7 mg/dL (1.6-2.6)
[2021-11-20] MEDS ORDERED: Promethazine HCl 25 MG/ML VIAL IVPB PRN (10:44)
[2021-11-20] MEDS ORDERED: HYDROmorphone 2 MG/ML VIAL SLOW IVP PRN (10:44)
[2021-11-20] MEDS ORDERED: Promethazine HCl 25 MG/ML VIAL IM PRN (10:44)
[2021-11-20] MEDS ORDERED: PACU-Morphine 4MG/ML VIAL SLOW IVP PRN (10:44)
[2021-11-20] MEDS ORDERED: Ondansetron HCl/PF 4 MG/2 ML Vial IVP PRN (10:44)
[2021-11-20] MEDS ORDERED: Magnesium 2 GM/50 ML(in water) 2 GM in Premix Bag 1 BAG IVPB SCH (11:00)
[2021-11-20] MEDS ORDERED: Sodium Chloride 0.9% 0 ML ONE (11:01)
[2021-11-20] MEDS ORDERED: Piperacillin/Tazobactam 3.375 GM VIAL ONE (11:01)
[2021-11-20] MEDS ORDERED: Morphine 2 MG/ML VIAL SLOW IVP PRN (16:52)
[2021-11-20] MEDS: Fentanyl 100 MCG/2 ML VIAL SLOW IVP PRN (19:52)
[2021-11-20] MEDS: Transdermal Patch Removal TOP SCH (20:10)
[2021-11-21] MEDS: Fentanyl 100 MCG/2 ML VIAL SLOW IVP PRN ×3 (00:12→20:04)
[2021-11-21] MEDS: Vancomycin HCl 750 MG in Sodium Chloride 0.9% 250 ML 250 ML IVPB SCH (00:55)
[2021-11-21] MEDS: Piperacillin/Tazobactam 3.375 GM in Sodium Chloride 0.9% 100 ML IVPB SCH ×2 (02:18→10:06)
[2021-11-21] MEDS: Sodium Chloride 0.9% 1,000 ML IV SCH ×2 (03:26→17:09)
[2021-11-21] MEDS: HYDROcodone/Acetaminophen 5/325 mg Tablet PO PRN ×2 (04:14→10:07)
[2021-11-21] MEDS: Levothyroxine Sodium 25 MCG TAB PO SCH (05:59)
[2021-11-21 06:00] LABS: #Lymphocytes 1.1 thou/uL (1.20-3.40); #Monocytes 0.8 thou/uL (0.11-0.59); #Neutrophils 8.2 thou/uL (1.40-6.50); %Basophils 0.3 % (0.0-1.0); %Eosinophils 0.1 % (0.0-10.0); %Lymphocytes 11.2 % (21.0-51.0); %Monocytes 7.7 % (0.0-10.0); %Neutrophils 80.8 % (42.0-75.0); Hemoglobin 8.5 g/dL (12.0-16.0); Mean Corpuscular HGB CONC 31.9 g/dL (32.0-36.0); Mean Corpuscular Hemoglobin 29.3 pg (27.0-31.0); Mean Corpuscular Volume 91.7 fL (78.0-98.0); Mean Platelet Volume 7.1 fL (7.4-10.4); Platelet Count 399 thou/uL (130-400); RBC Distribution Width 15.7 % (11.5-14.5); Red Blood Cell (RBC) Count 2.91 mill/uL (4.20-5.40); White Blood Cell (WBC) Count 10.1 thou/uL (4.8-10.8)
[2021-11-21 06:04] LABS: ALT (SGPT) 20 U/L (8-55); AST (SGOT) 21 U/L (5-34); Albumin 2.8 g/dL (3.4-4.8); Alkaline Phosphatase 83 U/L (40-110); Anion Gap 14 mmol/L (10-20); BUN (Urea Nitrogen) 14 mg/dL (9.8-20.1); Bilirubin, Total 0.5 mg/dL (0.2-1.2); Calc. Creatinine Clearance 51 mL/min (70-130); Calcium 9.2 mg/dL (7.8-10.44); Carbon Dioxide 18 mmol/L (23-31); Chloride 111 mmol/L (98-107); Estimated GFR 78; Globulin 3.4 g/dL (2.4-3.5); Glucose 97 mg/dL (83-110); Magnesium 1.9 mg/dL (1.6-2.6); Phosphorus 2.7 mg/dL (2.3-4.7); Potassium 3.8 mmol/L (3.5-5.1); Protein, Total 6.2 g/dL (5.8-8.1); Sodium 139 mmol/L (136-145)
[2021-11-21] MEDS ORDERED: Magnesium 2 GM/50 ML(in water) 2 GM in Premix Bag 1 BAG IVPB SCH (08:00)
[2021-11-21] MEDS: Senokot S 8.6-50 MG TAB PO SCH ×2 (08:58→21:15)
[2021-11-21] MEDS: Gabapentin 300 MG CAP PO SCH ×4 (08:58→21:15)
[2021-11-21] MEDS: tiZANidine HCl 4 MG TAB PO SCH ×3 (08:59→21:15)
[2021-11-21 12:40] LABS: Vancomycin, Trough 23.1 ug/mL
[2021-11-21] MEDS: HYDROcodone/Acetaminophen 5/325 mg Tablet PO SCH ×3 (13:27→21:14)
[2021-11-21] MEDS ORDERED: Vancomycin HCl 500 MG in Sodium Chloride 0.9% 100 ML IVPB SCH (14:00)
[2021-11-22] MEDS: HYDROcodone/Acetaminophen 5/325 mg Tablet PO SCH ×6 (01:10→20:58)
[2021-11-22] MEDS: Transdermal Patch Removal TOP SCH (02:21)
[2021-11-22] MEDS: Levothyroxine Sodium 25 MCG TAB PO SCH (05:09)
[2021-11-22] MEDS: Sodium Chloride 0.9% 1,000 ML IV SCH ×2 (05:09→19:46)
[2021-11-22 05:57] LABS: #Eosinphils 0.2 thou/uL (0.0-0.7); #Lymphocytes 1.2 thou/uL (1.20-3.40); #Monocytes 0.7 thou/uL (0.11-0.59); #Neutrophils 7.3 thou/uL (1.40-6.50); %Basophils 0.2 % (0.0-1.0); %Eosinophils 1.9 % (0.0-10.0); %Lymphocytes 12.3 % (21.0-51.0); %Monocytes 7.5 % (0.0-10.0); %Neutrophils 78.2 % (42.0-75.0); Hemoglobin 8.2 g/dL (12.0-16.0); Mean Corpuscular HGB CONC 32.3 g/dL (32.0-36.0); Mean Corpuscular Hemoglobin 29.5 pg (27.0-31.0); Mean Corpuscular Volume 91.3 fL (78.0-98.0); Platelet Count 461 thou/uL (130-400); RBC Distribution Width 15.9 % (11.5-14.5); Red Blood Cell (RBC) Count 2.78 mill/uL (4.20-5.40); White Blood Cell (WBC) Count 9.4 thou/uL (4.8-10.8)
[2021-11-22 06:19] LABS: ALT (SGPT) 26 U/L (8-55); AST (SGOT) 25 U/L (5-34); Albumin 2.8 g/dL (3.4-4.8); Alkaline Phosphatase 101 U/L (40-110); Anion Gap 14 mmol/L (10-20); BUN (Urea Nitrogen) 15 mg/dL (9.8-20.1); Bilirubin, Total 0.4 mg/dL (0.2-1.2); Calc. Creatinine Clearance 54 mL/min (70-130); Carbon Dioxide 18 mmol/L (23-31); Chloride 110 mmol/L (98-107); Estimated GFR 83; Globulin 3.3 g/dL (2.4-3.5); Glucose 94 mg/dL (83-110); Potassium 3.6 mmol/L (3.5-5.1); Protein, Total 6.1 g/dL (5.8-8.1); Sodium 138 mmol/L (136-145)
[2021-11-22] MEDS ORDERED: Potassium Chloride 20 MEQ TAB PO SCH (07:30)
[2021-11-22] MEDS: Senokot S 8.6-50 MG TAB PO SCH (08:39)
[2021-11-22] MEDS: tiZANidine HCl 4 MG TAB PO SCH ×3 (08:39→20:57)
[2021-11-22] MEDS: Gabapentin 300 MG CAP PO SCH ×4 (08:39→20:42)
[2021-11-22] MEDS: Acetaminophen 325 MG TAB PO PRN (15:51)
[2021-11-22] MEDS: hydrALAZINE 25 MG TAB PO SCH (20:57)
[2021-11-22] MEDS ORDERED: Morphine 2 MG/ML VIAL SLOW IVP PRN (21:00)
[2021-11-23] MEDS: HYDROcodone/Acetaminophen 5/325 mg Tablet PO SCH ×5 (01:11→17:25)
[2021-11-23] MEDS: Senokot S 8.6-50 MG TAB PO SCH ×3 (01:37→20:21)
[2021-11-23] MEDS: Transdermal Patch Removal TOP SCH ×2 (01:38→20:22)
[2021-11-23] MEDS: Levothyroxine Sodium 25 MCG TAB PO SCH (04:56)
[2021-11-23] MEDS ORDERED: Losartan 25 MG TAB PO SCH (09:00)
[2021-11-23 09:09] LABS: Hemoglobin 9.3 g/dL (12.0-16.0)
[2021-11-23] MEDS: tiZANidine HCl 4 MG TAB PO SCH ×3 (09:26→20:21)
[2021-11-23] MEDS: hydrALAZINE 25 MG TAB PO SCH ×2 (09:29→17:30)
[2021-11-23] MEDS: Gabapentin 300 MG CAP PO SCH ×4 (09:31→20:20)
[2021-11-23] MEDS: Sodium Chloride 0.9% 1,000 ML IV SCH ×2 (09:43→20:44)
[2021-11-23] MEDS: Acetaminophen 325 MG TAB PO PRN (16:23)
[2021-11-23] MEDS ORDERED: hydrALAZINE 20 MG/ML VIAL SLOW IVP PRN (19:33)
[2021-11-23] MEDS ORDERED: Valsartan 80 MG TAB PO SCH (19:45)
[2021-11-24] MEDS: HYDROcodone/Acetaminophen 5/325 mg Tablet PO SCH ×4 (00:21→17:51)
[2021-11-24] MEDS: Fentanyl 100 MCG/2 ML VIAL SLOW IVP PRN (03:10)
[2021-11-24] MEDS: Levothyroxine Sodium 25 MCG TAB PO SCH (05:29)
[2021-11-24 07:47] LABS: #Eosinphils 0.2 thou/uL (0.0-0.7); #Lymphocytes 1.6 thou/uL (1.20-3.40); #Neutrophils 7.3 thou/uL (1.40-6.50); %Basophils 0.3 % (0.0-1.0); %Lymphocytes 15.9 % (21.0-51.0); %Monocytes 10.1 % (0.0-10.0); %Neutrophils 71.6 % (42.0-75.0); Hemoglobin 9.7 g/dL (12.0-16.0); Mean Corpuscular HGB CONC 33.4 g/dL (32.0-36.0); Mean Corpuscular Hemoglobin 30.3 pg (27.0-31.0); Mean Corpuscular Volume 90.8 fL (78.0-98.0); Mean Platelet Volume 6.6 fL (7.4-10.4); Platelet Count 618 thou/uL (130-400); RBC Distribution Width 16.6 % (11.5-14.5); Red Blood Cell (RBC) Count 3.19 mill/uL (4.20-5.40); White Blood Cell (WBC) Count 10.1 thou/uL (4.8-10.8)
[2021-11-24] MEDS: tiZANidine HCl 4 MG TAB PO SCH ×2 (07:59→14:58)
[2021-11-24] MEDS: Senokot S 8.6-50 MG TAB PO SCH (07:59)
[2021-11-24] MEDS: Gabapentin 300 MG CAP PO SCH ×3 (07:59→16:43)
[2021-11-24 08:02] LABS: ALT (SGPT) 27 U/L (8-55); AST (SGOT) 20 U/L (5-34); Albumin 3.1 g/dL (3.4-4.8); Alkaline Phosphatase 126 U/L (40-110); Anion Gap 19 mmol/L (10-20); BUN (Urea Nitrogen) 12 mg/dL (9.8-20.1); Bilirubin, Total 0.5 mg/dL (0.2-1.2); Calc. Creatinine Clearance 52 mL/min (70-130); Calcium 9.5 mg/dL (7.8-10.44); Carbon Dioxide 16 mmol/L (23-31); Chloride 108 mmol/L (98-107); Estimated GFR 81; Globulin 3.7 g/dL (2.4-3.5); Glucose 88 mg/dL (83-110); Potassium 3.3 mmol/L (3.5-5.1); Protein, Total 6.8 g/dL (5.8-8.1); Sodium 140 mmol/L (136-145)
[2021-11-24] MEDS: Acetaminophen 325 MG TAB PO PRN ×2 (08:45→15:02)
[2021-11-24] MEDS ORDERED: Valsartan 80 MG TAB PO SCH (09:00)
[2021-11-24] MEDS ORDERED: Potassium Chloride 20 MEQ TAB PO SCH (09:45)
[2021-11-24 15:42] VITALS: BP 142/57; TEMP 98.1
== END 2021-11-24 19:09 | DRG 459 ==
LOC: ERS 10:35 → SURG A 14:15 → 2NO 11-18 18:33 → SJJU 11-19 18:48
PROVIDERS: ADMIT Family Medicine; ATTEND Internal Medicine
PROC: 30233N1 Transfusion of Nonautologous Red Blood Cells into Peripheral Vein, Percutaneous Approach (ICD-10-PCS; 2021-11-18)
PROC: 0SG00K1 Fusion of Lumbar Vertebral Joint with Nonautologous Tissue Substitute, Posterior Approach, Posterior Column, Open Approach (ICD-10-PCS; principal; 2021-11-20)
PROC: 0SP004Z Removal of Internal Fixation Device from Lumbar Vertebral Joint, Open Approach (ICD-10-PCS; 2021-11-20)
PROC: 3E0U0GB Introduction of Recombinant Bone Morphogenetic Protein into Joints, Open Approach (ICD-10-PCS; 2021-11-20)
DX: T84.84XA Pain due to internal orthopedic prosthetic devices, implants and grafts, initial encounter (principal); J18.9 Pneumonia, unspecified organism; E87.1 Hypo-osmolality and hyponatremia; E87.20 Acidosis, unspecified; R50.9 Fever, unspecified; Z20.822 Contact with and (suspected) exposure to COVID-19; E03.9 Hypothyroidism, unspecified; D64.9 Anemia, unspecified; K59.00 Constipation, unspecified; M54.2 Cervicalgia; K21.9 Gastro-esophageal reflux disease without esophagitis; E78.00 Pure hypercholesterolemia, unspecified; G47.30 Sleep apnea, unspecified; K20.90 Esophagitis, unspecified without bleeding; G89.29 Other chronic pain; I95.9 Hypotension, unspecified; I10 Essential (primary) hypertension; M19.90 Unspecified osteoarthritis, unspecified site; M54.16 Radiculopathy, lumbar region; M48.061 Spinal stenosis, lumbar region without neurogenic claudication; Z79.899 Other long term (current) drug therapy; Z79.890 Hormone replacement therapy; Z90.49 Acquired absence of other specified parts of digestive tract; Z90.89 Acquired absence of other organs; Z90.710 Acquired absence of both cervix and uterus; Z98.84 Bariatric surgery status; Z87.440 Personal history of urinary (tract) infections; Z90.722 Acquired absence of ovaries, bilateral; Z82.49 Family history of ischemic heart disease and other diseases of the circulatory system; Z82.3 Family history of stroke; K29.70 Gastritis, unspecified, without bleeding; T39.395A Adverse effect of other nonsteroidal anti-inflammatory drugs [NSAID], initial encounter
CPT/HCPCS: 36415; 36416; 36430; 71045; 72040; 72100; 72158; 72197; 80048; 80053; 80202; 81001; 82607; 82728; 83540; 83550; 83735; 84100; 84439; 84443; 84481; 84484; 85014; 85018; 85025; 85652; 86140; 86850; 86900; 86901; 87040; 87070; 87205; 87324; 87449; 87811; 93005; 93010; 93306; 93970; 96372; 96374; 96375; A9579; C1713; J0360; J1100; J1170; J1200; J1885; J2250; J2270; J2370; J2405; J2543; J2704; J2916; J3010; J3370; J3475; J3490; J7030; J7050; J7120; P9016; P9047; U0002

== ENCOUNTER 2021-12-11 08:39 | Outpatient (CLI) | payer MEDICARE, BC | END 2021-12-11 08:40 | disposition home or self-care (01) | LOC: TBSIIMAG 08:39 | PROVIDERS: ATTEND Neurological Surgery | DX: M54.50 Low back pain, unspecified (principal); M47.816 Spondylosis without myelopathy or radiculopathy, lumbar region; Z98.890 Other specified postprocedural states | CPT/HCPCS: 72100 ==

== ENCOUNTER 2022-02-10 13:02 | Outpatient (CLI) | payer MEDICARE, BC | END 2022-02-10 13:03 | disposition home or self-care (01) | LOC: TBSIIMAG 13:02 | PROVIDERS: ATTEND Neurological Surgery | DX: M54.16 Radiculopathy, lumbar region (principal) | CPT/HCPCS: 72100 ==

== ENCOUNTER 2022-05-18 14:12 | Outpatient (CLI) | payer MEDICARE, BC | END 2022-05-18 14:13 | disposition home or self-care (01) | LOC: TBSIIMAG 14:12 | PROVIDERS: ATTEND Neurological Surgery | DX: M47.816 Spondylosis without myelopathy or radiculopathy, lumbar region (principal); R29.890 Loss of height; M46.06 Spinal enthesopathy, lumbar region | CPT/HCPCS: 72100 ==

== ENCOUNTER 2022-12-23 12:20 | Outpatient (CLI) | payer MEDICARE, BC | END 2022-12-23 12:21 | disposition home or self-care (01) | LOC: SCSMRI 12:20 | PROVIDERS: ATTEND Specialist | DX: M51.16 Intervertebral disc disorders with radiculopathy, lumbar region (principal); M47.26 Other spondylosis with radiculopathy, lumbar region; M47.817 Spondylosis without myelopathy or radiculopathy, lumbosacral region | CPT/HCPCS: 72148 ==